=== PATIENT | female | born 1960 | race Caucasian/White ===

== ENCOUNTER 2020-11-26 08:07 | Day surgery (SDC) | payer OTHER ==
[~2020-11-26] VITALS: Ht 160 cm; Wt 86.2 kg
[2020-11-26] MEDS ORDERED: diphenhydrAMINE 50 MG/ML VIAL ONE (09:22)
[2020-11-26] MEDS ORDERED: LIDOCAINE 2% 100 MG/5 ML UJET TP ONE ×2 (09:22→09:40)
[2020-11-26] MEDS ORDERED: MIDAZOLAM 5 MG/5 ML VIAL ONE (09:22)
[2020-11-26] MEDS ORDERED: fentaNYL citrate 0.05 MG/ML VIAL ONE (09:22)
[2020-11-26] MEDS ORDERED: MIDAZOLAM 2 MG/2 ML VIAL IVP ONE ×2 (09:40→09:45)
[2020-11-26] MEDS ORDERED: fentaNYL citrate 0.05 MG/ML VIAL IVP ONE ×2 (09:40→09:45)
== END 2020-11-26 11:35 | disposition home or self-care (01) ==
LOC: MMU 08:07 → MDS 08:07 → MMU 08:19 → MDS 11:35
PROVIDERS: ATTEND Internal Medicine Gastroenterology
DX: Z12.11 Encounter for screening for malignant neoplasm of colon (principal); I10 Essential (primary) hypertension; Z90.49 Acquired absence of other specified parts of digestive tract; Z98.890 Other specified postprocedural states
CPT/HCPCS: G0121; J2250; J3010; J1200